=== PATIENT | male | born 1980 | race Two or more races ===

== ENCOUNTER 2023-03-09 18:07 | Emergency (ER) | payer MEDICAID, OTHER ==
[~2023-03-09] VITALS: Ht 177.8 cm; Wt 102.3 kg
[2023-03-09] MEDS ORDERED: HYDROcodone-ACET 10/325MG TAB PO ONE (20:00)
[2023-03-09] MEDS ORDERED: TETANUS-DIPTH-ACEL PERTUSSIS 0.5ML SYR Tdap IM ONE (20:00)
[2023-03-09] MEDS ORDERED: SILVER SULFADIAZINE 1 % TOPICAL CREAM 50GM TOP ONE (21:00)
[2023-03-09] MEDS ORDERED: SILV1CRE82 TOP (21:29)
[2023-03-09] MEDS ORDERED: CEPH250T PO (21:29)
[2023-03-09 22:10] VITALS: BP 130/82; PULSE 81; RESP 16; TEMP 98.4; O2SAT 95
== END 2023-03-09 22:21 | disposition home or self-care (01) ==
LOC: ER 18:07
DX: T23.251A Burn of second degree of right palm, initial encounter (principal); X08.8XXA Exposure to other specified smoke, fire and flames, initial encounter; Y93.89 Activity, other specified; Y92.89 Other specified places as the place of occurrence of the external cause; Y99.8 Other external cause status
CPT/HCPCS: 16020; 90471; 90715

== ENCOUNTER 2024-05-29 18:18 | Emergency (ER) | payer MEDICAID ==
[~2024-05-29] VITALS: Ht 167.6 cm; Wt 103.0 kg
[~2024-05-29 18:18] MED LIST: CEPH250T PO; SILV1CRE82 TOP
[2024-05-29 20:51] VITALS: BP 125/79; PULSE 93; RESP 17; TEMP 98.4; O2SAT 99
[2024-05-29] MEDS ORDERED: DOXY1CAP57 PO (21:13)
--- NOTE | 2024-05-29 21:13 | ED.PDOC ---
History of Present Illness(SKN HPI Comments This is a 43-year-old male presents to the ED chief complaint possible bug bite to abdomen. Patient states around 2 days ago he noticed redness and swelling and pain along with a puncture wound in the center on his lower mid abdomen. It is over the past 24 hours redness has increased. He states feels it was a bug bite however did not witness any bite possible bug. Any significant past medical history such as diabetes. He has fevers, chills, nausea, vomiting, or trauma Chief Complaint: Insect Bite Time Seen by MD: 18:29 Primary Care Provider: NONE History of Present Illness: Nurses Notes, Medications, Allergies Allergies: Coded Allergies: NO KNOWN ALLERGIES (Unverified , 03/09/23) Home Meds Active Scripts Doxycycline Monohydrate (Doxycycline Monohydrate) 100 Mg Cap, 1 CAP PO BID for 7 Days, #28 CAP Prov:PASCALE DUNAWAY BATH ATTENDANT 05/29/24 Cephalexin (Cephalexin) 250 Mg Tab, 250 MG PO QID for 10 Days, #40 TAB Prov:ALLYN JONAS BATH ATTENDANT 03/09/23 Silver Sulfadiazine (Silvadene) 1 % Cre, 1 APPLIC TOP BID for 10 Days, #50 GRAMS Prov:ALLYN JONAS [facility] 03/09/23 Information Source: Patient Mode of Arrival: Ambulatory Past Medical History PAST MEDICAL HISTORY: Denies Surgical History: Denies all surgeries Family History Family History: Reviewed,noncontributory to illness, No family hx of Cancer, No family hx of DM, No family hx of Heart callie, No family hx of HTN, No family hx ofKidney callie, No family hx of Liver callie, No family hx of Lung callie, No family hx of Stroke Social History Smoker: Non-Smoker Alcohol: Denies ETOH Use Drugs: Denies Drug Use Constitutional: denies: chills, diaphoresis, fatigue, fever, malaise, sweats, weakness, others EENTM: denies: blurred vision, double vision, ear bleeding, ear discharge, ear drainage, ear pain, ear ringing, eye pain, eye redness, hearing loss, mouth pain, mouth swelling, nasal discharge, nose bleeding, nose congestion, nose pain, photophobia, tearing, throat pain, throat swelling, voice changes, others Respiratory: denies: cough, hemoptysis, orthopnea, SOB at rest, shortness of breath, SOB with excertion, stridor, wheezing, others Cardiovascular: denies: chest pain, dizzy spells, diaphoresis, Dyspnea on exertion, edema, irregular heart beat, left arm pain, lightheadedness, p alpitations, PND, syncope, others Gastrointestinal: denies: abdomen distended, abdominal pain, blood streaked bowels, constipated, diarrhea, dysphagia, difficulty swallowing, hematemesis, melena, nausea, poor appetite, poor fluid intake, rectal bleeding, rectal pain, vomiting, others Genitourinary: denies: burning, dysuria, flank pain, frequency, hematuria, incontinence, penile discharge, penile sore, pain, testicle pain, testicle swelling, urgency, others Neurological: denies: dizziness, fainting, headache, left sided numbness, left sided weakness, numbness, paresthesia, pre-existing deficit, right sided numbness, right sided weakness, seizure, speech problems, tingling, tremors, weakness, others Musculoskeletal: denies: back pain, gout, joint pain, joint swelling, muscle pain, muscle stiffness, neck pain, others Integumetry: denies: bruises, change in color, change in hair/nails, dryness, laceration, lesions, lumps, rash, wounds, others Allergic/Immunocompromised: denies: Difficulty Healing, Frequent Infections, Hives, Itching, others Hematologic/Lymphatic: denies: anemia, blood clots, easy bleeding, easy b ruising, swollen glands, others Endocrine: denies: excessive hunger, excessive sweating, excessive thirst, excessive urination, flushing, intolerance to cold, intolerance to heat, unexplained weight gain, unexplained weight loss, others Psychiatric: denies: anxiety, bipolar disorder, depression, hopeless, panic disorder, schizophrenia, sleepless, suicidal, others Physical Exam General Appearance: No Apparent Distress, Normal HEENT: Pharynx Normal Neck: Full Range of Motion, Non-Tender Respiratory: Chest Non-Tender, Lungs Clear, No Respiratory Distress, Normal Breath Sounds Cardiovascular: No Edema, No JVD, No Murmur, No Gallop, Normal Peripheral Pulses, Regular Rate/Rhythm Breast Exam: Deferred Gastrointestinal: No Organomegaly, Non Tender, No Pulsatile Mass, Normal Bowel Sounds, Soft Genitalia: Deferred Pelvic: Deferred Rectal: Deferred Extremities: Normal capillary refill, Normal inspection, Normal range of motion, Non-tender, No pedal edema Musculoskeletal : Apperance: Normal Neurologic: Alert, process improvement engineer II-XII nml as Tested, No Motor Deficits, Normal Affect, Normal Mood, No Sensory Deficits Cerebellar Function: Normal Reflexes: Normal Skin: Dry, Normal Color, Rash (Circular erythemic patch mid to right lower abdomen with noted Center puncture without drainage, or streaking. Non fluctuant hard to touch appears to be more subcutaneous versus intrusion into the muscle or peritoneum space. ), Warm Lymphatic: No Adenopathy Was a procedure done? Was a procedure done?: No Differential Diagnosis (INTG) Differential Diagnosis: Cellulitis X-Ray, Labs, Meds, VS Vital Signs Date Time Temp Pulse Resp B/P (MAP) Pulse Ox O2 Delivery O2 Flow Rate FiO2 05/29/24 20:51 98.4 93 17 125/79 (94) 99 98.4 05/29/24 20:51 93 17 99 Room Air 05/29/24 18:51 97.3 92 20 153/93 (113) 99 Current Medications Medications (Trade) Dose Ordered Sig/Aliya Route Start Time Stop Time Status Last Admin Ceftriaxone Sodium (Rocephin) 1,000 mg ONCE ONCE IM 05/29/24 21:15 05/29/24 21:16 DC 05/29/24 21:18 Acetaminophen/ Hydrocodone Bitart (Neptune 5/325MG Tab) 2 tab ONCE ONCE PO 05/29/24 21:15 05/29/24 21:16 DC 05/29/24 21:18 X-Ray, Labs, Meds, VS Comment Rocephin IM 1 g and Neptune 10 mg p.o. he reports improvement in his pain is requesting discharge at this time. Outpatient treat with doxycycline twice daily x7 days. Ice patient to follow back up at urgent care PCP or back here in the ER for wound recheck in 2 days. Advised on ER return precautions. Patient indicated understanding and agrees with discharge plan of care. Time of 1ST Reevaluation: 21:11 Reevaluation 1ST: Improved Patient Education/Counseling: Diagnosis, Treatment, Prognosis, Need For Follow Up Family Education/Counseling: Diagnosis, Treatment, Prognosis, Need For Follow Up Departure 1 Departure Time of Disposition: 21:11 Impression: Primary Impression: Bug bite with infection Qualified Codes: W57.XXXA - Bitten or stung by nonvenomous insect and other nonvenomous arthropods, initial encounter Disposition: HOME / SELF CARE / HOMELESS Condition: Stable e-Prescriptions Doxycycline Monohydrate (Doxycycline Monohydrate) 100 Mg Cap 1 CAP PO BID for 7 Days, #28 CAP Prov: PASCALE DUNAWAY 05/29/24 Discharged With: Friend Critical Care Note Critical Care Time?: No Stability Stability form required: No PASCALE DUNAWAY May 29, 2024 21:13
[2024-05-29] MEDS: HYDROcodone-ACET 5/325MG TAB PO ONE (21:18)
[2024-05-29] MEDS: cefTRIAXone SOD 1,000 MG VL IM ONE (21:18)
== END 2024-05-29 21:44 | disposition home or self-care (01) ==
LOC: ER 18:26
DX: S31.139A Puncture wound of abdominal wall without foreign body, unspecified quadrant without penetration into peritoneal cavity, initial encounter (principal); L08.9 Local infection of the skin and subcutaneous tissue, unspecified; E11.9 Type 2 diabetes mellitus without complications; W57.XXXA Bitten or stung by nonvenomous insect and other nonvenomous arthropods, initial encounter; Y93.89 Activity, other specified; Y92.89 Other specified places as the place of occurrence of the external cause; Y99.8 Other external cause status
CPT/HCPCS: 96372; 99283; J0696